=== PATIENT | male | born 1965 | race Caucasian/White ===

== ENCOUNTER → 2020-06-01 | Day surgery (SDC) | payer OTHER ==
[~2020-06-01] VITALS: Ht 170.2 cm; Wt 84.5 kg
[~2020-06-01] MED LIST: AMLO-257 PO; CYAN250010 PO; CeFAZolin 2 GM/DEXTROSE 50 ML IV ONE; LACO150T2 PO; LEVE500T53 PO; LOSA50TA37 PO; MetroNIDAZOLE 500 MG/NACL 100 ML IV ONE; RINGERS SOLUTION,LACTATED 1,000 ML IV ONE
[2020-06-01 12:40] LABS: COVID AG,FIA SOURCE NASOPHARYNGEAL
[2020-06-01 12:42] LABS: BASOPHILS % (AUTO) 0.3 % (0.0-2.0); HEMATOCRIT 49.6 % (41-53); HEMOGLOBIN 17.1 g/dL (13.5-17.5); LYMPHOCYTES # (AUTO) 1.6 K/uL (1.0-4.8); LYMPHOCYTES % (AUTO) 27.9 % (22.0-44.0); MEAN CORPUSCULAR HEMOGLOBIN 32.3 pg (26.0-34.0); MEAN CORPUSCULAR HGB CONC 34.4 G/dL (31.0-37.0); MEAN CORPUSCULAR VOLUME 94 fL (80-100); MONOCYTES # (AUTO) 1.2 K/uL (0.1-1.0); MONOCYTES % (AUTO) 21.6 % (2.0-9.0); NEUTROPHILS # (AUTO) 2.8 K/uL (1.8-7.7); NEUTROPHILS % (AUTO) 49.2 % (40.0-70.0); PLATELET COUNT (AUTO) 102 K/uL (150-450); RED BLOOD CELL COUNT(AUTO) 5.29 MIL/uL (4.50-5.90); RED CELL DISTRIBUTION WIDTH 12.6 % (11.5-14.5)
[2020-06-01 12:58] LABS: ANION GAP 8 mmol/L (8-16); CALCIUM, TOTAL 8.7 mg/dL (8.8-10.5); CARBON DIOXIDE 28 mmol/L (22-29); CHLORIDE 106 mmol/L (98-107); CREATININE 0.99 mg/dL (0.60-1.30); GLOMERULAR FILTR. RATE CALC > 60 mL/min (>60); GLUCOSE,RANDOM 104 mg/dL (70-110); INR 0.9 (0.9-1.1); POTASSIUM 3.4 mmol/L (3.5-5.1); PROTHROMBIN TIME 9.8 SEC (9.4-11.6); SODIUM SERUM 142 mmol/L (136-145); UREA NITROGEN, BLOOD 11 mg/dL (7-18)
== END | disposition home or self-care (01) ==
LOC: SURGERY 13:08
PROVIDERS: ATTEND Surgery
DX: K40.30 Unilateral inguinal hernia, with obstruction, without gangrene, not specified as recurrent (principal); Z53.8 Procedure and treatment not carried out for other reasons; Z20.828 Contact with and (suspected) exposure to other viral communicable diseases
CPT/HCPCS: 36415; 80048; 85025; 85610; 85730; 87426; 93005; C9803

== ENCOUNTER 2020-07-27 06:57 | Day surgery (SDC) | payer OTHER ==
[2020-07-26 09:43] LABS: COVID AG,FIA SOURCE NASOPHARYNGEAL
[~2020-07-27] VITALS: Ht 170.2 cm; Wt 84.5 kg
[~2020-07-27 06:57] MED LIST changes: +CYAN1TAB44 PO; -CeFAZolin 2 GM/DEXTROSE 50 ML IV ONE; +LACO100 PO; -MetroNIDAZOLE 500 MG/NACL 100 ML IV ONE
[2020-07-27] MEDS ORDERED: FentaNYL CITRATE PF 100 MCG/2 ML VIAL IVP ONE (06:58)
[2020-07-27] MEDS ORDERED: ONDANSETRON HCL 4 MG/2 ML VIAL IVP ONE (06:58)
[2020-07-27] MEDS ORDERED: MORPHINE SULFATE/PF 0.5 MG/ML 10 ML AMP IVP ONE (06:58)
[2020-07-27] MEDS ORDERED: LIDOCAINE/PF 2% 5 ML VIAL IM ONE (06:58)
[2020-07-27] MEDS ORDERED: PROPOFOL 1% 20 ML VIAL IVP ONE (06:58)
[2020-07-27] MEDS ORDERED: MIDAZOLAM HCL 2 MG/2 ML VIAL IVP ONE (06:58)
[2020-07-27] MEDS ORDERED: ROCURONIUM BROMIDE 10 MG/ML 5 ML VIAL IVP ONE (06:58)
[2020-07-27] MEDS ORDERED: DEXAMETHASONE SOD PHOS 4 MG/ML VIAL IVP ONE (06:58)
[2020-07-27] MEDS ORDERED: KETOROLAC TROMETHAMINE 60 MG/2 ML VIAL IM ONE (06:58)
[2020-07-27] MEDS ORDERED: 0.9% SODIUM CHLORIDE 10 ML VIAL IVP ONE (06:58)
[2020-07-27] MEDS ORDERED: RINGERS SOLUTION,LACTATED 1,000 ML IV ONE (07:00)
[2020-07-27] MEDS ORDERED: BUPIVACAINE HCL/PF 0.5% 30 ML VIAL ONE (07:05)
[2020-07-27] MEDS ORDERED: LIDOCAINE 2%/EPI 1:200,000/PF 20 ML VIAL ONE (07:05)
[2020-07-27] MEDS ORDERED: SODIUM CHLORIDE 0.9% 1,000 ML ONE (07:13)
[2020-07-27 07:18] LABS: BASOPHILS % (AUTO) 0.3 % (0.0-2.0); EOSINOPHILS % (AUTO) 1.2 % (1.0-6.0); HEMATOCRIT 46.8 % (41-53); HEMOGLOBIN 15.9 g/dL (13.5-17.5); LYMPHOCYTES # (AUTO) 2.1 K/uL (1.0-4.8); LYMPHOCYTES % (AUTO) 33.9 % (22.0-44.0); MEAN CORPUSCULAR HEMOGLOBIN 31.4 pg (26.0-34.0); MEAN CORPUSCULAR VOLUME 93 fL (80-100); MONOCYTES # (AUTO) 0.5 K/uL (0.1-1.0); MONOCYTES % (AUTO) 8.2 % (2.0-9.0); NEUTROPHILS # (AUTO) 3.5 K/uL (1.8-7.7); NEUTROPHILS % (AUTO) 56.4 % (40.0-70.0); PLATELET COUNT (AUTO) 171 K/uL (150-450); RED BLOOD CELL COUNT(AUTO) 5.06 MIL/uL (4.50-5.90)
[2020-07-27 07:31] LABS: ANION GAP 8 mmol/L (8-16); CALCIUM, TOTAL 9.1 mg/dL (8.8-10.5); CARBON DIOXIDE 31 mmol/L (22-29); CHLORIDE 110 mmol/L (98-107); CREATININE 0.97 mg/dL (0.60-1.30); GLOMERULAR FILTR. RATE CALC > 60 mL/min (>60); GLUCOSE,RANDOM 107 mg/dL (70-110); POTASSIUM 4.8 mmol/L (3.5-5.1); SODIUM SERUM 149 mmol/L (136-145); UREA NITROGEN, BLOOD 11 mg/dL (7-18)
[2020-07-27] MEDS ORDERED: ACETAMINOPHEN 500 MG TABLET PO PRN (09:15)
[2020-07-27] MEDS ORDERED: IBUPROFEN 800 MG TABLET PO PRN (09:15)
== END 2020-07-27 11:00 | disposition home or self-care (01) ==
LOC: SURGERY 06:57
PROVIDERS: ATTEND Surgery
DX: K40.90 Unilateral inguinal hernia, without obstruction or gangrene, not specified as recurrent (principal); I10 Essential (primary) hypertension; G40.909 Epilepsy, unspecified, not intractable, without status epilepticus; E78.5 Hyperlipidemia, unspecified; Z79.899 Other long term (current) drug therapy
CPT/HCPCS: 36415; 49650; 80048; 85025; 87426; 93005; C1781; C9803; J0690; J1100; J1885; J2250; J2274; J2405; J2704; J3010; J3490 ×3; J7030; J7120